=== PATIENT | male | born 1960 | race Hispanic/Latino ===

== ENCOUNTER 2017-06-05 06:25 | Day surgery (SDC) | payer BC ==
[2017-06-05 07:08] VITALS: BMI 26.4
[2017-06-05 07:33] VITALS: TEMP 98
[2017-06-05] MEDS ORDERED: Bupivacaine 0.5% Inj(30mL) ONE (07:35)
[2017-06-05] MEDS ORDERED: Lidocaine 1% Inj (20ml) ONE (07:35)
[2017-06-05] MEDS ORDERED: Propofol 10 mg/ml Inj (20 ML) ONE ×2 (07:54→09:04)
[2017-06-05] MEDS ORDERED: Midazolam 2 MG/2 ML VIAL ONE (07:54)
[2017-06-05] MEDS ORDERED: Lidocaine 2% Inj (20ml) ONE (07:54)
[2017-06-05] MEDS ORDERED: ePHEDrine 50 mg/ml Inj ONE (07:55)
[2017-06-05] MEDS ORDERED: Phenylephrine 10 mg/ml Inj ONE (07:55)
[2017-06-05] MEDS ORDERED: Rocuronium 10 mg/ml (5 ml) ONE (08:25)
[2017-06-05] MEDS ORDERED: Neostigmine Methylsulfate 3mg/3ml Syringe IV ONE (09:15)
--- NOTE | 2017-06-05 09:40 | PCM.SURG1 ---
Surgeon's Initial Post Op Note - Surgeon's Notes Surgeon: MD Jorge Luis In Class Special Education Teacher: Albaro, PGY2, Samantha, PGY1, MS Paty4 Pre-Operative Diagnosis: Basal cell carcinoma of the left mederos Operative Findings: left mederos skin lesion Post-Operative Diagnosis: Basal cell carcinoma of left mederos Operation Performed: Excision of skin cancer, basal cell carcinoma in the left mederos, with advancement of flap of 11cm*3cm Specimen/Specimens Removed: left mederos lesion Estimated Blood Loss: EBL {In ML}: 15 Date of Surgery/Procedure: 06/05/17 Time of Surgery/Procedure: 08:15
[2017-06-05] MEDS ORDERED: HYDROmorphone 0.5 mg/0.5 ml ISec IVP PRN (09:45)
[2017-06-05] MEDS ORDERED: HYDROmorphone 1 mg/ml ISec IVP PRN (09:45)
[2017-06-05] MEDS ORDERED: Oxycodone/Acetaminophen 5/325 mg Tab PO PRN (09:45)
[2017-06-05] MEDS ORDERED: Lactated Ringer's 1,000 ML IV SCH (09:45)
[2017-06-05 10:08] VITALS: O2SAT 98
[2017-06-05 10:14] VITALS: RESP 16
[2017-06-05] MEDS ORDERED: Oxycodone/Acetaminophen 5/325 mg Tab PO ONE (10:55)
[2017-06-05] MEDS ORDERED: Oxycodone/Acetaminophen 5/325 mg Tab ONE (10:55)
[2017-06-05 11:38] VITALS: PULSE 73
[2017-06-05 12:22] VITALS: BP 130/70
--- NOTE | 2017-06-06 06:37 | OP ---
PROCEDURE DATE: 06/05/2017 PREOPERATIVE DIAGNOSIS: Malignant lesion of the anterior left mederos. POSTOPERATIVE DIAGNOSIS: Malignant lesion of the anterior left mederos. PROCEDURES PERFORMED: 1. Wide and deep excision of the left anterior mederos skin lesion. 2. Advancement flap closure of a 11 x 3 cm wound of the anterior left mederos. SURGEON: Santos Kang MD. BALANCE TRUING INSPECTOR: Albaro. TYPE OF ANESTHESIA: General endotracheal anesthesia. ANESTHESIA ADMINISTERED BY: Giacomo Torres MD. ESTIMATED BLOOD LOSS: Minimal. SPECIMEN: Left leg skin lesion. DESCRIPTION OF PROCEDURE: The patient is a 57-year-old male with a history of hepatitis C and alcohol addiction, who underwent endovenous ablation of the varicose veins and previously was noted to have an ulcerated lesions on the left mederos about 5 cm below the knee. That lesion was biopsied showing presence of basal cell carcinoma and the patient was brought in for excision of the lesion margin and underlying tissues. First standard time of procedure was took place and everybody in the room agreed as to the patient's identity diagnosis and procedure to be performed and the patient's history and plan for the surgical procedure was reviewed. First using lidocaine mixed with Marcaine in the area of the incision, which was marked with marker was carefully infiltrated and then the incision was made using number 15 blade using S shaped incision. Once this was done, I then proceeded with careful dissection of the lesion with surrounded skin using number 15 blade and carefully removed it all the way down with the portion of the fascia underlying the skin. Once this was done, the wound was copiously irrigated. All the bleeding points were cauterized. Flaps were not raised for about 3-4 inches on each side along the leg in order to gain adequate length of skin mobilization for closure of the wound. Once this was completed, the flaps were raised and then proceeded with careful reapproximation of the skin edges using 3-0 Vicryl with a deep dermal layer and once this was completed, skin was closed using 3-0 nylon. A vertical mattress fashion stitches in order to completely close the wound. Once this was done, the wound itself was covered with Dermabond dressing and sterile dressing of 4 x 4s and Kerlix was applied on top of it. The leg was then wrapped with Sung bandage from the foot up to the knee. The patient tolerated the procedure well and there were no complications. The patient was awaken and transferred to the recovery room for further observation. Santos Kang MD
== END 2017-06-05 12:26 | disposition home or self-care (01) ==
LOC: SDS 06:25
PROVIDERS: ATTEND General Practice
DX: C44.719 Basal cell carcinoma of skin of left lower limb, including hip (principal); F10.20 Alcohol dependence, uncomplicated; Y90.9 Presence of alcohol in blood, level not specified; Z86.19 Personal history of other infectious and parasitic diseases
CPT/HCPCS: 14020; 88309; J0690; J1170 ×2; J2250; J2370; J2405; J2704; J2710; J3010; J7120 ×2

== ENCOUNTER 2019-01-08 11:50 | Emergency (ER) | payer BC ==
[2019-01-08 12:05] VITALS: RESP 18; TEMP 97.6; BMI 31.4
[2019-01-08] MEDS ORDERED: Sodium Chloride 0.9% 1,000 ML IV STA (12:12)
[2019-01-08] MEDS ORDERED: Morphine 2 mg/ml ISec IVP STA (12:42)
--- NOTE | 2019-01-08 13:06 | ED PDOC ---
Arrival/HPI - General Chief Complaint: GI Problem Time Seen by Provider: 01/08/19 11:51 Historian: Patient - History of Present Illness Narrative History of Present Illness (Text): 01/08/19 13:03 58 year old M with pmh of Hep C and sciatica presents complaining of abdominal pain w/ diarrhea 3wks. Patient was advised by Dr. Goodman to present to the ED for further evaluation and Abd& Pelvis CT. Patient mentions of lost of appetite for 4 days and feeling hot and cold. Did not check actual temp. Patient denies any chest pain, palpations, dizziness, back pain, vomiting, neck pain, urinary changes, or any other complains. Trial Lawyer: Dr. Goodman Symptom Onset: Sudden Symptom Course: Unchanged Activities at Onset: Light Past Medical History - Provider Review Nursing Documentation Reviewed: Yes - Infectious Disease Hx of Infectious Diseases: None - Cardiac Hx Pacemaker: No - Neurological Hx Paralysis: No - Endocrine/Metabolic Hx Diabetes Mellitus Type 2: Yes - Hematological/Oncological Hx Blood Transfusions: No - Integumentary Other/Comment: ble skin discoloration, lle scab below knee surrounded with brown skin - Musculoskeletal/Rheumatological Hx Musculoskeletal Disorders: Yes (RA) - Gastrointestinal Hx Gastrointestinal Disorders: No - Psychiatric Hx Emotional Abuse: No Hx Physical Abuse: No Hx Substance Use: No - Anesthesia Hx Anesthesia: Yes Hx Anesthesia Reactions: No Hx Malignant Hyperthermia: No - Suicidal Assessment Feels Threatened In Home Enviroment: No Family/Social History - Physician Review Nursing Documentation Reviewed: Yes Family/Social History: Unknown Family HX Smoking Status: Never Smoked Hx Alcohol Use: Yes (BEER ON OCCASION) Hx Substance Use: No Allergies/Home Meds Allergies/Adverse Reactions: Allergies Penicillins Allergy (Verified 01/08/19 13:07) ANAPHYLAXIS seasonal Allergy (Uncoded 05/03/15 12:36) CONGESTION Home Medications: Home Meds Medication Instructions Recorded Confirmed ALPRAZolam [Xanax] 1 mg PO TID 05/03/15 06/05/17 Bupropion HCl [Bupropion Xl] 150 mg PO QAM 05/03/15 06/05/17 [place] Carbonate [[place] 300 mg PO TID 05/03/15 06/05/17 Carbonate ER] ARIPiprazole [Abilify] 10 mg PO HS 05/28/17 06/05/17 Gabapentin [Neurontin] 1,200 mg PO BID 05/28/17 06/05/17 Multivit-Min/FA/Lycopen/Lutein 1 tab PO DAILY 05/28/17 06/05/17 [Centrum Silver Tablet] Cephalexin [cephalexin] 500 mg PO Q8 06/05/17 06/05/17 Tramadol HCl [Ultram] 50 mg PO Q4H PRN 06/05/17 06/05/17 Review of Systems - Physician Review All systems were reviewed & negative as marked: Yes - Review of Systems ENT: absent: Sore Throat, Rhinorrhea, Epistaxis Respiratory: absent: SOB, Cough, Wheezing Cardiovascular: absent: Chest Pain, Palpitations, ALLEN, Syncope Gastrointestinal: Abdominal Pain, Diarrhea, Appetite Changes (decreased). absent: Nausea, Vomiting, Hematochezia, Hematemesis Genitourinary Male: absent: Dysuria, Hematuria Musculoskeletal: absent: Arthralgias, Back Pain, Neck Pain, Myalgias Skin: absent: Rash, Laceration, Ulcer Neurological: absent: Headache, Dizziness Physical Exam Vital Signs Reviewed: Yes Vital Signs Temp Pulse Resp BP Pulse Ox 01/08/19 12:04 97.6 F 61 18 137/83 98 Temperature: Afebrile Blood Pressure: Normal Pulse: Regular Respiratory Rate: Normal Appearance: Positive for: Well-Appearing, Non-Toxic, Comfortable Pain Distress: Mild Mental Status: Positive for: Alert and Oriented X 3 - Systems Exam Head: Present: Atraumatic, Normocephalic Pupils: Present: PERRL Extroacular Muscles: Present: EOMI Conjunctiva: Present: Normal Mouth: Present: Moist Mucous Membranes Neck: Present: Normal Range of Motion Respiratory/Chest: Present: Clear to Auscultation, Good Air Exchange. No: Respiratory Distress, Accessory Muscle Use Cardiovascular: Present: Regular Rate and Rhythm, Normal S1, S2. No: Murmurs Abdomen: Present: Tenderness (diffuse). No: Distention, Peritoneal Signs, Rebound, Guarding Back: Present: Normal Inspection Upper Extremity: Present: Normal Inspection. No: Cyanosis, Edema Lower Extremity: Present: Normal Inspection. No: Edema Neurological: Present: GCS=15, CN II-XII Intact, Speech Normal Skin: Present: Warm, Dry, Normal Color. No: Rashes Psychiatric: Present: Alert, Oriented x 3, Normal Insight, Normal Concentration Medical Decision Making ED Course and Treatment: 01/08/19 13:10 Impression: 58 year old M presents complaining of abdominal pain w/diarrhea 3wks Plan: -- Abd & Pelvis CT -- Labs -- Pepcid -- Morphine -- Zofran -- Urine Culture -- UA -- Reassess and disposition Progress Notes: 01/08/19 14:26 CT Abdomen and Pelvis with contrast -- Eccentric left sided mid level small-bowel perceived mural thickening- clinical significance, if any (versus incomplete the distension in peristalsis) are some considerations. No obstruction. An enteritis is not excluded. Clinical correlation and clinical follow-up recommended. -- Bilateral renal calculi nonobstructing as referenced above. -- Multiple small layering gallstones within the distended gallbladder. No gallbladder wall thickening or pericholecystic fluid grossly apparent. No dilated ducts. Hepatic steatosis. -- Atherosclerotic vascular calcifications. Chest X Ray --No active disease Discussed case with Dr. Goodman. Recommends hold Hep C antiviral for 1 week, f/u with him in office, soft foods, fluids, discharge from ED. - RAD Interpretation Radiology Orders: 01/08/19 12:12 ABD & PELVIS IV CONTRAST ONLY [CT] Stat CHEST PORTABLE [RAD] Stat - Medication Orders Current Medication Orders: Sodium Chloride (Sodium Chloride 0.9%) 1,000 mls @ 999 mls/hr IV .Q1H1M STA Stop: 01/08/19 13:12 Last Admin: 01/08/19 12:54 Dose: 999 mls/hr eMAR Start Stop Document 01/08/19 12:54 EQ (Rec: 01/08/19 12:54 EQ [id number]) Intravenous Solution Start Date 01/08/19 Start Time 12:54 Discontinued Medications Famotidine (Pepcid) 20 mg IVP STAT STA Stop: 01/08/19 12:13 Last Admin: 01/08/19 12:54 Dose: 20 mg IVP Administration Document 01/08/19 12:54 EQ (Rec: 01/08/19 12:54 EQ [id number]) Charges for Administration # of IVP Administrations 1 Morphine Sulfate (Morphine) 2 mg IVP STAT STA Stop: 01/08/19 12:43 Last Admin: 01/08/19 12:54 Dose: 2 mg MAR Pain Assessment Document 01/08/19 12:54 EQ (Rec: 01/08/19 12:54 EQ [id number]) Pain Reassessment Is this a pain reassessment? No Sleep Is patient sleeping during reassessment? No Presence of Pain Presence of Pain Yes IVP Administration Document 01/08/19 12:54 EQ (Rec: 01/08/19 12:54 EQ [id number]) Charges for Administration # of IVP Administrations 1 Ondansetron HCl (Zofran Inj) 8 mg IVP STAT STA Stop: 01/08/19 12:13 Last Admin: 01/08/19 12:54 Dose: 8 mg IVP Administration Document 01/08/19 12:54 EQ (Rec: 01/08/19 12:54 EQ [id number]) Charges for Administration # of IVP Administrations 1 - Scribe Statement The provider has reviewed the documentation as recorded by the Scribpatt Ramirez All medical record entries made by the Scribe were at my direction and personall y dictated by me. I have reviewed the chart and agree that the record accurately reflects my personal performance of the history, physical exam, medical decision making, and the department course for this patient. I have also personally directed, reviewed, and agree with the discharge instructions and disposition. Disposition/Present on Arrival - Present on Arrival Any Indicators Present on Arrival: No History of DVT/PE: No History of Uncontrolled Diabetes: No Urinary Catheter: No History of Decub. Ulcer: No History Surgical Site Infection Following: None - Disposition Have Diagnosis and Disposition been Completed?: Yes Diagnosis: Diarrhea Disposition: HOME/ ROUTINE Disposition Time: 14:44 Patient Plan: Discharge Condition: GOOD Discharge Instructions (ExitCare): Dehydration, Adult (DC) Referrals: Skinny Goodman MD [Staff Provider] - Follow up with primary Forms: [employer] (T[place]anian)
[2019-01-08 13:10] LABS: BASO # 0.01 K/mm3 (0.0-2.0); BASO % 0.2 % (0.0-3.0); EOS # 0.1 (0.0-0.7); EOS % 2.1 % (1.5-5.0); HEMOGLOBIN 13.3 g/dL (14.0-18.0); LYMPH # 0.7 (1.2-3.4); MEAN CELL VOLUME 105.7 fl (80.0-105.0); MEAN CORPUSCULAR HEMOGLOBIN 34.5 pg (25.0-35.0); MEAN CORPUSCULAR HGB CONC 32.7 g/dl (31.0-37.0); MEAN PLATELET VOLUME 9.1 fl (7.0-11.0); MONO # 0.4 (0.1-0.6); MONO % 8.3 % (1.0-6.0); RBC 3.85 10^6/uL (3.5-6.1); RED CELL DISTRIBUTION WIDTH 14.1 % (11.5-14.5); WHITE BLOOD COUNT 5.3 10^3/uL (4.5-11.0)
[2019-01-08 13:25] LABS: ALB/GLOB RATIO 1.1 (1.1-1.8); ALBUMIN 4.1 g/dL (3.0-4.8); BLOOD UREA NITROGEN 12 mg/dL (7-21); CALCIUM 9.5 mg/dL (8.4-10.5); GFR NON-AFRICAN AMERICAN > 60; LIPASE 221 U/L (23-300)
[2019-01-08 13:26] LABS: ALT/SGPT 40 U/L (7-56); AST/SGOT 59 U/L (17-59)
[2019-01-08] MEDS ORDERED: Iohexol 350 MG/100 ML VIAL ONE (13:39)
--- NOTE | 2019-01-08 14:17 | CT ---
Date of service: 01/08/2019 PROCEDURE: CT Abdomen and Pelvis with contrast HISTORY: abd pain COMPARISON: None. TECHNIQUE: Contrast dose: 100 mL of Omnipaque 350 Radiation dose: Total exam DLP = 995.29 mGy-cm. This CT exam was performed using one or more of the following dose reduction techniques: Automated exposure control, adjustment of the mA and/or kV according to patient size, and/or use of iterative reconstruction technique. FINDINGS: LOWER THORAX: Unremarkable. LIVER: Mild diffuse hepatic steatosis. No gross lesion or ductal dilatation. GALLBLADDER AND BILE DUCTS: Multiple small gallstones layering layering in the moderately distended gallbladder. No gross gallbladder wall thickening or pericholecystic fluid seen. PANCREAS: Unremarkable. No gross lesion or ductal dilatation. SPLEEN: Nearing upper limits of normal. No splenic masses seen. ADRENALS: Unremarkable. No mass. KIDNEYS AND URETERS: Multiple nonobstructing right lower renal pole calculi these appear less than 4 mm in size. Some vascular calcification origin etiology is also possible. No hydronephrosis. No solid mass. Few were nonobstructing left renal calculi also present again these could be vascular. This is less than 5 mm in size lower pole axial series 2, image 42. VASCULATURE: No aortic aneurysm. There is presence of aortic atherosclerotic calcification and mural plaque on cross sectional studies. BOWEL: Rectosigmoid diverticulosis and redundancy. No obstruction seen. There is a left mid to lower abdominal level small-bowel loops perceived long segmental eccentric mural thickening in the coronal plane series 601, image 36 assessment is limited without the oral contrast. Unclear if this is a intrinsic small bowel eccentric mural thickening or this is due to under distension and partial volume averaging no surrounding fat inflammatory changes here noted. No associated bowel obstruction small large bowel perceived. Findings are nonspecific. Clinical significance, if any is unclear as well. APPENDIX: Normal appendix. PERITONEUM: Unremarkable. No free fluid. No free air. LYMPH NODES: Unremarkable. No enlarged lymph nodes. BLADDER: Unremarkable. REPRODUCTIVE: Prostate is within normal limits in terms of size. Prostatic calcifications noted. BONES: No acute fracture. Mild diffuse thoraco lumbar spondylosis. Bilateral facet hypertrophic arthrosis. Bilateral L5 spondylolysis. No marked disc spondylolisthesis seen. L5-S1 subchondral sclerosis noted. OTHER FINDINGS: Periumbilical fat containing knuckle of the herniated fat. No bowel containing herniation here or elsewhere appreciated. IMPRESSION: Eccentric left sided mid level small-bowel perceived mural thickening-clinical significance, if any (versus incomplete the distension in peristalsis) are some considerations. No obstruction. An enteritis is not excluded. Clinical correlation and clinical follow-up recommended. Bilateral renal calculi nonobstructing as referenced above. Multiple small layering gallstones within the distended gallbladder. No gallbladder wall thickening or pericholecystic fluid grossly apparent. No dilated ducts. Hepatic steatosis. Atherosclerotic vascular calcifications.
--- NOTE | 2019-01-08 14:20 | RAD ---
Date of service: 01/08/2019 HISTORY: abd pain COMPARISON: 05/28/2017 TECHNIQUE: 1 view obtained. FINDINGS: LUNGS: No active pulmonary disease. PLEURA: No significant pleural effusion identified, no pneumothorax apparent. CARDIOVASCULAR: No aortic atherosclerotic calcification present. Normal cardiac size. No pulmonary vascular congestion. OSSEOUS STRUCTURES: No significant abnormalities. VISUALIZED UPPER ABDOMEN: Normal. OTHER FINDINGS: None. IMPRESSION: No active disease.
[2019-01-08 14:38] LABS: PH,URINE 6.5 (4.7-8.0); URINE BILIRUBIN NEGATIVE (NEGATIVE); URINE BLOOD NEGATIVE (NEGATIVE); URINE GLUCOSE (UA) NEGATIVE (NEGATIVE); URINE LEUKOCYTE ESTERASE TRACE Leu/uL (NEGATIVE); URINE PROTEIN NEGATIVE mg/dL (<30 mg/dL)
[2019-01-08 14:48] LABS: URINE APPEARANCE CLEAR (CLEAR); URINE COLOR YELLOW (YELLOW)
[2019-01-08 14:52] LABS: URINE BACTERIA FEW /hpf; URINE RBC 0 - 2 /hpf (0-2)
[2019-01-08 15:01] VITALS: BP 145/80; PULSE 54
[2019-01-08 15:14] VITALS: O2SAT 96
== END 2019-01-08 15:14 | disposition home or self-care (01) ==
LOC: ED 11:50
DX: R19.7 Diarrhea, unspecified (principal); E11.9 Type 2 diabetes mellitus without complications
CPT/HCPCS: 71045; 74177; 80053; 81001; 83690; 83735; 84100; 85025; 87086; 96374; 96375; 99283; J2270; J2405; J7030; Q9967